=== PATIENT | female | born 1960 | race African-American/Black ===

== ENCOUNTER 2025-03-17 16:51 | Emergency (ER) | payer BC, MEDICARE ==
[~2025-03-17] VITALS: Ht 177.8 cm; Wt 127.0 kg
[2025-03-17 17:00] VITALS: TEMP 36.7; O2SAT 98
[2025-03-17] MEDS ORDERED: LIDOCAINE HCL 1% 20ML VIAL INFIL ONE (18:00)
[2025-03-17] MEDS: LIDOCAINE HCL 1% 20ML VIAL INFIL SCH (18:04)
[2025-03-17] MEDS: TETANUS, DIPHTHERIA, PERTUSSIS VAC/PF 0.5ML (>10YR OLD) IM ONE (18:05)
[2025-03-17 18:33] VITALS: BP 137/73; PULSE 70; RESP 14; O2SAT 100
== END 2025-03-17 18:36 | disposition home or self-care (01) ==
LOC: ER 17:17
DX: S01.511A Laceration without foreign body of lip, initial encounter (principal); I10 Essential (primary) hypertension; E78.00 Pure hypercholesterolemia, unspecified; Z90.710 Acquired absence of both cervix and uterus; W18.30XA Fall on same level, unspecified, initial encounter; Y93.89 Activity, other specified; Y92.89 Other specified places as the place of occurrence of the external cause; Y99.8 Other external cause status
CPT/HCPCS: 73562; 70450; 90715; 12011; 90471; 99285; J2003; Z7610